=== PATIENT | female | born 1955 ===

== ENCOUNTER → 2022-04-26 | Outpatient (CLI) | payer OTHER ==
[~2022-04-26] MED LIST: CYAN1000I; DILAUDID; DILAUDID IM; DILAUDID IV; GABA100 PO; HYDMOR2 PO; HYDMOR4; LEVSOD200; LEVSOD200 PO; MINO100 PO; NOT TAKING ANY MEDS; OMEP20ER PO; ONDA4ODT; ONDA4ODT MM; [UNRECOGNIZED DRUG - CODE]
== END ==
LOC: LAB SHORT 17:00 → LAB 17:00
DX: N81.6 Rectocele (principal)
CPT/HCPCS: 87086